=== PATIENT | female | born 2000 | race Two or more races ===

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

== ENCOUNTER 2025-02-02 14:10 | Outpatient (CLI) | payer OTHER ==
[~2025-02-02 14:10] MED LIST changes: +DUI500 PO
== END 2025-02-02 14:12 | disposition home or self-care (01) ==
LOC: PRENATAL 14:10
PROVIDERS: ATTEND Obstetrics & Gynecology Maternal & Fetal Medicine
DX: O26.849 Uterine size-date discrepancy, unspecified trimester (principal); Z14.8 Genetic carrier of other disease; Z3A.18 18 weeks gestation of pregnancy

== ENCOUNTER 2025-03-03 07:24 | Outpatient (CLI) | payer OTHER | END 2025-03-03 07:25 | disposition home or self-care (01) | LOC: PRENATAL 07:24 | PROVIDERS: ATTEND Obstetrics & Gynecology Maternal & Fetal Medicine | DX: O44.00 Complete placenta previa NOS or without hemorrhage, unspecified trimester (principal); O34.219 Maternal care for unspecified type scar from previous cesarean delivery; Z3A.21 21 weeks gestation of pregnancy ==

== ENCOUNTER → 2025-05-19 13:10 | Outpatient (CLI) | payer OTHER | END | disposition home or self-care (01) | LOC: PRENATAL 13:10 | PROVIDERS: ATTEND Obstetrics & Gynecology Maternal & Fetal Medicine | DX: O26.843 Uterine size-date discrepancy, third trimester (principal); O36.8130 Decreased fetal movements, third trimester, not applicable or unspecified; O34.219 Maternal care for unspecified type scar from previous cesarean delivery ==